=== PATIENT | male | born 1955 | race Caucasian/White ===

== ENCOUNTER 2018-08-04 07:26 | Day surgery (SDC) | END 2018-08-05 15:33 | disposition home or self-care (01) ==

== ENCOUNTER 2019-06-14 07:14 | Day surgery (SDC) | payer MEDICARE, OTHER ==
[~2019-06-14] VITALS: Ht 185.4 cm; Wt 87.7 kg
[2019-06-14] VITALS (19 sets, daily range): BP systolic 113–143; BP diastolic 58–76; PULSE 52–85; RESP 10–24; Ht 185.4 cm; Wt 87.7 kg
[~2019-06-14 07:14] MED LIST: ALFU10TA2 PO; ASPI-535 PO; ASPI81TA52 PO; ATOR-2 PO; CHOL500010 PO; DOCU50CA PO; DUTA0.5C PO; FENO145T25 PO; FENO145T37 PO; ISOS120T15 PO; LISI-471 PO; METF500T24 PO; NICO-546 TRANSDERM; RANO10002 PO; SOD CHLORIDE 0.45% 1,000 ML IV SCH; TAMS-14 PO; TICA90TA PO; TRAM50TA2 PO; VALS80TA2 PO
[2019-06-14] MEDS ORDERED: FAMOTIDINE 20 MG TAB PO SCH (08:00)
[2019-06-14] MEDS ORDERED: DIAZEPAM 5 MG TAB PO SCH (08:00)
[2019-06-14] MEDS ORDERED: DIPHENHYDRAMINE 50 MG CAP PO SCH (08:00)
[2019-06-14] MEDS ORDERED: VERAPAMIL 5 MG INJ ONE (09:09)
[2019-06-14] MEDS ORDERED: MIDAZOLAM 1 MG/ML 2 ML INJ ONE (09:09)
[2019-06-14] MEDS ORDERED: NITROGLYCERIN (IC) 100 MCG/ML INJ ONE (09:09)
[2019-06-14] MEDS ORDERED: HEPARIN 1000 UNITS/ML 10 ML INJ ONE (09:09)
[2019-06-14] MEDS ORDERED: FENTAnyl 50 MCG/ML VIAL ONE (09:09)
[2019-06-14] MEDS ORDERED: LIDOCAINE 1% (MDV) 20 ML INJ ONE (09:09)
[2019-06-14] MEDS ORDERED: ASPIRIN 325 MG TAB ONE (09:56)
[2019-06-14] MEDS ORDERED: TICAGRELOR 90 MG TABLET ONE (09:56)
[2019-06-14] MEDS ORDERED: IODIXANOL LOCM 50 ML BTL ONE (10:43)
[2019-06-14] MEDS ORDERED: IODIXANOL LOCM 100 ML BTL ONE (10:52)
[2019-06-14] MEDS ORDERED: BIVALIRUDIN 250MG /NS 50 ML 100 ML IVPB ONE (10:52)
[2019-06-14] MEDS ORDERED: IOHEXOL 350MG/ML 50 ML BTL ONE (10:52)
[2019-06-14] MEDS ORDERED: SOD CHLORIDE 0.9% 1,000 ML IV SCH (11:14)
[2019-06-14] MEDS ORDERED: ACETAMINOPHEN 325 MG TAB PO PRN (11:30)
[2019-06-14] MEDS ORDERED: AL HYDROX/MG HYDROX/SIMETH 30 ML CUP PO PRN (11:30)
[2019-06-14] MEDS ORDERED: ZOLPIDEM 5 MG TAB PO PRN (11:30)
[2019-06-14] MEDS ORDERED: morphine 2 MG INJ IV PRN (11:30)
[2019-06-14] MEDS ORDERED: ONDANSETRON 4 MG INJ IV PRN (11:30)
[2019-06-14] MEDS ORDERED: OXYCODONE/ACETAMINOPHEN (5/325) TAB PO PRN (11:30)
[2019-06-14] MEDS: NICOTINE (21 MG/24 HR) PATCH TRANSDERM SCH (13:28)
[2019-06-14] MEDS: INSULIN ASPART [NOVOLOG] 3 ML PEN SC SCH ×2 (17:35→20:52)
[2019-06-14] MEDS: TICAGRELOR 90 MG TABLET PO SCH (20:51)
[2019-06-14] MEDS ORDERED: ALFUZOSIN (SR) 10 MG TAB PO SCH (21:00)
[2019-06-14] MEDS ORDERED: TICAGRELOR 90 MG TABLET PO SCH (21:00)
[2019-06-14] MEDS ORDERED: ATORVASTATIN 80 MG TAB PO SCH (21:00)
[2019-06-15] VITALS (14 sets, daily range): BP systolic 97–142; BP diastolic 39–111; PULSE 69–89; RESP 15–30
[2019-06-15] MEDS: INSULIN ASPART [NOVOLOG] 3 ML PEN SC SCH ×2 (07:50→11:28)
[2019-06-15] MEDS: NICOTINE (21 MG/24 HR) PATCH TRANSDERM SCH (08:41)
[2019-06-15] MEDS: TICAGRELOR 90 MG TABLET PO SCH (08:48)
[2019-06-15] MEDS ORDERED: LISINOPRIL 20 MG TAB PO SCH (09:00)
[2019-06-15] MEDS ORDERED: ASPIRIN (EC) 81 MG TAB PO SCH (09:00)
[2019-06-15] MEDS ORDERED: FENOFIBRATE 145 MG TAB PO SCH (09:00)
[2019-06-15] MEDS ORDERED: GLUCAGON 1 MG INJ IM PRN (09:30)
[2019-06-15] MEDS ORDERED: DEXTROSE 50% 50 ML SYRINGE IV PRN ×2 (09:30)
[2019-06-15] MEDS ORDERED: GLUCOSE GEL 15 GRAM TUBE PO PRN ×2 (09:30)
[2019-06-15] MEDS ORDERED: GLUCOSE GEL 15 GRAM TUBE BUCCAL PRN (09:30)
== END 2019-06-15 13:45 | disposition home or self-care (01) ==
LOC: SDS 07:14 → ICU 11:17 → SDS 06-15 13:45
PROVIDERS: ATTEND Internal Medicine
DX: I25.119 Atherosclerotic heart disease of native coronary artery with unspecified angina pectoris (principal); R94.39 Abnormal result of other cardiovascular function study; I10 Essential (primary) hypertension; E78.00 Pure hypercholesterolemia, unspecified; F17.200 Nicotine dependence, unspecified, uncomplicated; E11.9 Type 2 diabetes mellitus without complications; Z79.84 Long term (current) use of oral hypoglycemic drugs
CPT/HCPCS: 71045; 80048; 80061; 82550; 82553; 82962; 84484; 85025; 85610; 85730; 87081; 93005; 93458; C1725; C1874; C1887; C9600; C9601; J0583; J1644; J1815; J2250; J3010; J7030; Q9967